=== PATIENT | female | born 1970 | race Caucasian/White ===

== ENCOUNTER → 2017-08-22 | Outpatient (CLI) | payer MEDICARE, MEDICAID | LOC: MC.RAD 10:48 | DX: Z12.31 Encounter for screening mammogram for malignant neoplasm of breast (principal) ==

== ENCOUNTER → 2018-10-30 | Outpatient (CLI) | payer MEDICARE, MEDICAID | LOC: MC.RAD 12:58 | DX: Z12.31 Encounter for screening mammogram for malignant neoplasm of breast (principal) ==

== ENCOUNTER → 2021-02-15 | Outpatient (CLI) | payer MEDICARE, MEDICAID | LOC: MC.RAD 10:52 | DX: Z12.31 Encounter for screening mammogram for malignant neoplasm of breast (principal) ==

== ENCOUNTER 2022-08-01 08:41 | Day surgery (SDC) | payer MEDICARE, MEDICAID ==
[~2022-08-01] VITALS: Ht 157.5 cm; Wt 68.4 kg
[2022-08-01] MEDS ORDERED: CLARITIN 1010 MG/TAB PO (08:57)
[2022-08-01] MEDS ORDERED: PRILOTC PO (08:58)
[2022-08-01] MEDS ORDERED: ONE-A-DAY ESSE1 EACH PO (08:58)
[2022-08-01] MEDS ORDERED: LEVOXYL0.125 MG PO (08:59)
[2022-08-01] MEDS ORDERED: RISPERDAL 1M1 MG/TAB PO (08:59)
[2022-08-01] MEDS ORDERED: FLONASEALLERGY NS (09:04)
[2022-08-01] MEDS ORDERED: TYLENOL 325MG325 MG PO (09:05)
[2022-08-01 09:11] VITALS: BP 119/74; PULSE 70; TEMP 97.8
[2022-08-01 10:45] VITALS: BP 105/84; PULSE 63
[2022-08-01 11:00] VITALS: BP 117/82; PULSE 61; TEMP 97.3
[2022-08-01 11:15] VITALS: BP 120/89; PULSE 66
== END 2022-08-01 11:50 | disposition home or self-care (01) ==
LOC: SDCO 08:41
DX: Z12.11 Encounter for screening for malignant neoplasm of colon (principal); K57.30 Diverticulosis of large intestine without perforation or abscess without bleeding
CPT/HCPCS: J2704; J3010

== ENCOUNTER 2024-05-25 11:21 | Emergency (ER) | payer MEDICARE, MEDICAID ==
[~2024-05-25] VITALS: Ht 157.5 cm; Wt 48.7 kg
[~2024-05-25 11:21] MED LIST: CLARITIN 1010 MG/TAB PO; FLONASEALLERGY NS; LEVOXYL0.125 MG PO; ONE-A-DAY ESSE1 EACH PO; PRILOTC PO; RISPERDAL 1M1 MG/TAB PO; TYLENOL 325MG325 MG PO
[2024-05-25 11:36] VITALS: TEMP 97.4
[2024-05-25 13:00] VITALS: BP 140/82; PULSE 72
[2024-05-25] MEDS ORDERED: NS 1,000 ML IV ONE (13:00)
[2024-05-25 13:27] LABS: BASO # 0.1 K/mm3 (0.0-0.2); EOS % 0.3 % (0.0-4.0); GRAN % 48.8 % (42.2-75.2); HEMATOCRIT 38.8 % (37.0-47.0); HEMOGLOBIN 14.1 g/dl (12.5-16.0); LYMPH # 2.7 K/mm3 (1.2-3.4); LYMPH % 43.3 % (20.0-51.0); MEAN CELL VOLUME 90 fl (80.0-100.0); MEAN CORPUSCULAR HEMOGLOBIN 33 pg (27-31); MEAN CORPUSCULAR HGB CONC 36 g/dl (33.0-37.0); MEAN PLATELET VOLUME 9.7 fl (7.4-10.4); MONO # 0.4 K/mm3 (0.1-0.6); MONO % 6.4 % (1.7-9.3); PLATELET COUNT 191 K/mm3 (130-400); RED BLOOD COUNT 4.32 M/mm3 (4.10-5.30); REDCELL DISTRIBUTION WIDTH-CV 13.2 % (11.5-14.5)
[2024-05-25 13:41] LABS: ALBUMIN 3.6 g/dL (3.5-5.0); BILIRUBIN,TOTAL 1.2 mg/dL (0.2-1.2); CALCIUM 9.5 mg/dL (8.4-10.2); CREATININE, serum 0.79 mg/dL (0.57-1.11); POTASSIUM 3.7 mEq/L (3.5-4.5); TOTAL PROTEIN 7.2 g/dl (6.2-8.1)
[2024-05-25 14:02] LABS: TSH w REFLEX 0.007 uIU/mL (0.350-4.940)
== END 2024-05-25 13:15 | disposition home or self-care (01) ==
LOC: COL.ER 11:21
PROVIDERS: Physician Assistant
DX: I95.9 Hypotension, unspecified (principal); R00.1 Bradycardia, unspecified